=== PATIENT | female | born 1960 | race Caucasian/White ===

== ENCOUNTER → 2020-10-23 | Outpatient (CLI) | payer OTHER ==
[2014-04-22 12:44] VITALS: BP 126/90
[~2020-10-23] MED LIST: CYCL10TA2 PO; DOCU-109 PO; HYDR-2678 PO; HYDR-2765 PO; PARO20TA99 PO
--- NOTE | 2020-10-23 11:26 | KCIC ---
MR LUMBAR SPINE WO [id number] History: Reason: LOW BACK PAIN / Spl. Instructions: Prior surgery x 2, last was in 2016. / History: L LE numbness. Right leg pain, worsening in last 6 mths. Technique: Multiplanar, multi sequential MR imaging was performed of the lumbar spine. Comparison: None Findings: Postoperative changes left posterior stabilization and interbody fusion L2-L3. Mild leftward curvatur e of the lumbar spine centered at L2-L3. Normal vertebral body height. No fracture. Degenerative endp late edema L1-L2. Conus terminates at the normal location. No evidence of nerve root clumping. Prominent posterior epid ural fat. T12-L1: Small disc bulge. Moderate right greater than left facet arthropathy. No canal narrowing. No neuroforaminal narrowing. L1-L2: Central disc extrusion contributing to severe central canal narrowing. Prominent dorsal epidu ral fat. Postoperative changes left hemilaminectomy. Nerve root compression. Facet arthropathy, right greater than left. Moderate neuroforaminal narrowing. L2-L3: Effusion. No canal narrowing. Mild facet arthropathy. No neuroforaminal narrowing. L3-L4: Broad-based disc bulge eccentric to the left. Left foraminal annular fissure. Prominent epidu ral fat. Moderate canal narrowing. Moderate facet arthropathy. Mild bilateral neuroforaminal narrowin g. Subarticular recess narrowing, left greater than right. L4-L5: Broad-based disc bulge. Moderate facet arthropathy. Prominent epidural fat. Severe canal narr owing. Severe subarticular recess narrowing. Moderate left and mild right neuroforaminal narrowing. L5-S1: Disc bulge. Advanced facet arthropathy. No canal narrowing. No neuroforaminal narrowing. Impression: 1. Postoperative changes L2-L3. 2. Multilevel lumbar spondylosis with prominent epidural fat most prominent L1-L2 and L4-5. 3. L1-L2 large central disc extrusion contributing to severe canal narrowing with nerve root mitali carlos. 4. L4-L5 severe canal narrowing. 5. Moderate L3-L4 canal narrowing. 6. Multilevel neuroforaminal narrowing. Electronically signed by: Luis Lopez DO (10/23/2020 11:24 AM) [id number]
== END ==
LOC: KCIC MRI 09:23
PROVIDERS: ATTEND Nurse Practitioner
DX: M47.817 Spondylosis without myelopathy or radiculopathy, lumbosacral region (principal); M48.061 Spinal stenosis, lumbar region without neurogenic claudication
CPT/HCPCS: 72148

== ENCOUNTER → 2020-12-07 | Outpatient (CLI) | payer OTHER ==
[2014-04-22 12:44] VITALS: BP 126/90
[~2020-12-07] MED LIST changes: +LORA10TA3 PO; +METH-562 PO; +MUPI22OI2 TP; +OXYC-325 PO
[2020-12-07 11:14] LABS: BASO # 0.1 x10^3/uL (0.0-0.2); BASO % 1 % (0-3); EOS # 0.2 x10^3/uL (0.0-0.7); EOS % 2 % (0-3); HEMATOCRIT 47.2 % (36.0-47.0); HEMOGLOBIN 16.1 g/dL (12.0-15.5); LYMPH # 2.1 x10^3/uL (1.0-4.8); LYMPH % 25 % (24-48); MEAN CORPUSCULAR HEMOGLOBIN 34 pg (25-35); MEAN CORPUSCULAR HGB CONC 34 g/dL (31-37); MEAN CORPUSCULAR VOLUME 100 fL (79-100); MONO # 0.6 x10^3/uL (0.0-1.1); MONO % 6 % (0-9); NEUT # 5.8 x10^3/uL (1.8-7.7); NEUT % 66 % (31-73); PLATELET COUNT 282 x10^3/uL (140-400); RED BLOOD COUNT 4.73 x10^6/uL (3.50-5.40); RED CELL DISTRIBUTION WIDTH 13.2 % (11.5-14.5); WHITE BLOOD COUNT 8.8 x10^3/uL (4.0-11.0)
[2020-12-07 11:32] LABS: ALBUMIN 3.9 g/dL (3.4-5.0); ALBUMIN/GLOBULIN RATIO 1.1 (1.0-1.7); CREATININE 0.8 mg/dL (0.6-1.0); GFR 73.2; POTASSIUM 4.4 mmol/L (3.5-5.1); TOTAL BILIRUBIN 0.5 mg/dL (0.2-1.0); TOTAL PROTEIN 7.3 g/dL (6.4-8.2)
== END ==
LOC: SURGPAT 10:38
PROVIDERS: ATTEND Neurological Surgery
DX: Z01.812 Encounter for preprocedural laboratory examination (principal); M51.16 Intervertebral disc disorders with radiculopathy, lumbar region; M48.062 Spinal stenosis, lumbar region with neurogenic claudication; Z20.822 Contact with and (suspected) exposure to COVID-19
CPT/HCPCS: 80053; 85025; 87641; U0003; U0005

== ENCOUNTER 2020-12-11 07:38 | Observation (INO) | payer OTHER ==
--- NOTE | 2020-12-08 14:48 | HP ---
ADMIT DATE: 12/11/2020 PREOPERATIVE HISTORY AND PHYSICAL HISTORY OF PRESENT ILLNESS: The patient is a pleasant 59-year-old who is having difficulty with low back pain, which radiates into her right hip and proximal anterior thigh as well as pain and numbness that radiates down the lateral aspect of her leg to her left foot. She says that when she is active. There is a numb sensation, which involves her left leg and she feels that her left leg may collapse. The problem has been present for about 6 months. She says she has a constant pain of about 6-7/10, but it can reach 10/10. Activity such as walking and standing increase her pain. Sitting in a recliner helps. She has had chiropractic treatment without benefit. She has had prednisone injections without benefit. She is currently working from home and sitting at a computer, which makes the problem worse. In 2007, she underwent an instrumented lumbar fusion. In 2013, she underwent surgery at L1-L2 for herniated disk. She did well from both of these surgeries. CURRENT MEDICATIONS: Naproxen, Paxil. PAST MEDICAL HISTORY: No previous medical history. PAST SURGICAL HISTORY: Lumbar fusion in 1999, lumbar surgery at L1-L2 on the left in 2013. FAMILY HISTORY: Heart disease. 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 . Smokes 1 pack per day for 20 years. Drinks 2 alcoholic beverages per day. ALLERGIES: CODEINE. REVIEW OF SYSTEMS: A 10-point review of systems was performed and is noncontributory except that mentioned above. PHYSICAL EXAMINATION: GENERAL: Alert, pleasant, in no acute distress. HEENT: Normocephalic, atraumatic. SKIN: Warm and dry, well-healed lumbar incision. MUSCULOSKELETAL: Lumbar paraspinal muscle bulk is normal, restricted range of motion of the lumbar spine, [id number] tenderness of the lower lumbar spine with palpation, normal range of motion of the lower extremities bilaterally, internal and external rotation of the right hip is not painful. EXTREMITIES: No clubbing, cyanosis or edema. NEUROLOGIC: Alert and oriented x 3. Strength is 5/5 in the lower extremities. Sensory was intact to light touch in the lower extremities except for a decreased sensation in the lateral side of the left leg, Reflexes were trace and symmetric in the lower extremities, negative straight leg raising bilaterally, slow antalgic gait. IMAGING: I reviewed a lumbar MRI scan from 10/23/2020. On that study at L1-L2, there is a central disk extrusion contributing to severe canal stenosis along with hypertrophic facet disease on the right and lateral stenosis. At L4-L5, there is severe canal narrowing and severe subarticular recess narrowing. ASSESSMENT AND PLAN: At this point, based on the pattern of her pain, I suspect that the right hip problem is related to the L1-L2 issue and that the left lateral thigh and leg numbness is related to the stenosis at L4-L5. I recommended a right laminectomy and diskectomy at L1-L2 with a left direct laminectomy and decompression at L4-L5. I spoke with her about the technique, the risk and the expected postoperative course. She understands and would like to go ahead. KORI/DESIRAE DR: Anna TID: [id number]
[2020-12-11] VITALS (9 sets, daily range): BP systolic 99–122; BP diastolic 50–79
[~2020-12-11] VITALS: Ht 162.6 cm; Wt 82.5 kg
[~2020-12-11 07:38] MED LIST changes: +BUPIVACAINE-EPI 0.5%-1:200000 MPF 30 ML VIAL. ONE; +GELATIN SPONGE SIZE 100. ONE; +HYDROmorphone 2 MG/ML VIAL IVP PRN; +IV RINGERS,LACTATED 1000ML 1,000 ML IV SCH; +KETOROLAC 60 MG/2 ML VIAL. ONE; +LIDOCAINE 2% PF 5 ML VIAL. ONE; -METH-562 PO; -OXYC-325 PO; +PROCHLORPERAZINE 10 MG/2 ML VIAL. IVP PRN; +PROPOFOL 10 MG/ML (20ML) VIAL. IV ONE; +PROPOFOL 50 ML IV ONE; +REMIFENTANIL 2 MG VIAL. IV ONE; +ROCURONIUM 50 MG/5 ML VIAL. ONE; +SUCCINYLCHOLINE 200 MG/10 ML VIAL. ONE; +THROMBIN TOPICAL 20,000 UNIT SPRAY.SYRN KIT TP ONE; +fentaNYL PF VIAL 100 MCG/2 ML VIAL IVP PRN; +fentaNYL PF VIAL 100 MCG/2 ML VIAL ONE
[2020-12-11] MEDS ORDERED: DEXAMETHASONE SOD PHOS 4 MG/ML VIAL ONE (09:03)
[2020-12-11] MEDS ORDERED: PROPOFOL 10 MG/ML (20ML) VIAL. IV ONE (09:27)
[2020-12-11] MEDS ORDERED: ONDANSETRON PF 4 MG/2 ML VIAL. ONE (10:18)
[2020-12-11] MEDS ORDERED: PROPOFOL 50 ML IV ONE (10:34)
[2020-12-11] MEDS ORDERED: PHENYLEPHRINE 10 MG/ML VIAL. ONE (11:03)
[2020-12-11] MEDS ORDERED: diphenhydrAMINE HCL 25 MG CAPSULE PO PRN (11:45)
[2020-12-11] MEDS ORDERED: NALOXONE 0.4 MG/ML VIAL. IV PRN (11:45)
[2020-12-11] MEDS ORDERED: fentaNYL PF VIAL 100 MCG/2 ML VIAL IVP PRN (11:45)
[2020-12-11] MEDS ORDERED: 0.9 % SODIUM CHLORIDE 10 ML DISP.SYRIN. IV PRN (11:45)
[2020-12-11] MEDS ORDERED: CALCIUM CARBONATE 500 MG TAB.CHEW PO PRN (11:45)
[2020-12-11] MEDS ORDERED: ONDANSETRON PF 4 MG/2 ML VIAL. IVP PRN (11:45)
[2020-12-11] MEDS ORDERED: MAG HYDROX/ALUMINUM HYD/SIMETH 30 ML ORAL.SUSP PO PRN (11:45)
[2020-12-11] MEDS ORDERED: oxyCODONE/APAP 5/325 1 TAB TABLET PO PRN (11:45)
[2020-12-11] MEDS ORDERED: METHOCARBAMOL 750 MG TABLET PO PRN (11:45)
[2020-12-11] MEDS ORDERED: MAGNESIUM HYDROXIDE 2,400 MG/30 ML ORAL.SUSP. PO PRN (11:45)
[2020-12-11] MEDS: POTASSIUM CL 20MEQ D5-0.45NACL 1,000 ML IV SCH (11:45)
[2020-12-11] MEDS ORDERED: ACETAMINOPHEN 325 MG TABLET. PO PRN (11:45)
[2020-12-11] MEDS ORDERED: PARoxetine 20 MG TABLET PO SCH ×2 (12:00→21:00)
[2020-12-11] MEDS ORDERED: fentaNYL PF VIAL 100 MCG/2 ML VIAL ONE (12:04)
--- NOTE | 2020-12-11 12:04 | OP ---
DATE OF SURGERY: 12/11/2020 PREOPERATIVE DIAGNOSES: 1. Lumbar spinal stenosis L4-L5, left with left lumbar radiculopathy. 2. Herniated lumbar disc, L1-L2 with right lumbar radiculopathy and stenosis. POSTOPERATIVE DIAGNOSIS: OPERATION PERFORMED: 1. Left direct laminectomy L4-L5 with decompression of dura and nerve root. 2. Right direct laminectomy with microdiscectomy L1-L2. The operation was done with EMG monitoring, fluoroscopy, microscopic dissection. SURGEON: Amilcar Wisdom M.D. PECAN GROWER: Nasrin Mosley APRN, assisted with the surgery. She assisted with the exposure, the decompression at L4-L5 as well as a discectomy at L1-L2 and closure. OPERATIVE INDICATIONS: The patient is a very pleasant 60-year-old who developed back and bilateral leg symptoms and had the above-mentioned findings on imaging studies. I recommended lumbar decompressive surgery and discectomy. She understood the surgery, the risks, technique, she wished to go ahead. DESCRIPTION OF PROCEDURE: Following general endotracheal anesthesia, the patient was positioned prone on the Jay table. Lumbar region prepped and draped in standard fashion. EDSON hose and AV impulse boots were applied for DVT prophylaxis. The microscope was draped, fluoroscopy was draped and brought into the field. Monitoring was established. Ancef 2 grams was given less than one hour prior to initiation of the surgery. Using fluoroscopic guidance, an incision was made over the L4-L5 interspace. I dissected down skin and subcutaneous tissue, reflected the paraspinal muscles on the left side and placed a [place] microdisk retractor. She had previously undergone extensive surgery and laminectomy on the right side. At this point, then I brought in the high speed air drill and the microscope and using microscopic technique, I burred down a very generous hemilaminotomy and then trimmed away very thickened ligamentum flavum and peeled this back and exposed the dura and I performed a partial foraminotomy. I did palpated the disc, which was very firm, but was bulging slightly posteriorly, but I did not believe discectomy was warranted. After fully decompressing, I irrigated copiously. I laid Gelfoam over the hemilaminotomy site. I removed the retractor, obtained hemostasis of the muscle, closed the fascia at L4-5 and switched to the contralateral side, made an incision directly over the L1-L2 interspace and I dissected down skin and subcutaneous tissue and dissecting again the paraspinal muscles and placed a [place] microdisc retractor, brought in the microscope again and using the high speed air drill, I burred down a generous hemilaminotomy and then tilted the table away and drilled across the midline as well as drilled ipsilaterally and performed a generous partial foraminotomy. I trimmed away very thickened ligamentum flavum, which was partially scarred to the dura. I gently retracted the dura medially. There was a large subligamentous disc herniation, which was central and I reentered into the disc space as medial as I could and began to perform discectomy. As I worked, I was able to remove large quantities of disc and I was able to pass my [place] dental farther medially. I felt that I had an excellent decompression. I did work posteriorly and widely decompressed. With regard to the lamina, there was epidural fat, which I also removed at both levels. Following this, then I irrigated copiously with Betadine solution. I closed the wound in layers with absorbable suture. The skin was closed with 4-0 subcuticular stitch. I felt the surgery went very well. JENSEN/DESIRAE DR: Katherine TID: [id number] ANABELA
[2020-12-11] MEDS ORDERED: PROCHLORPERAZINE 10 MG/2 ML VIAL. ONE (12:05)
[2020-12-11] MEDS: fentaNYL PF VIAL 100 MCG/2 ML VIAL IVP PRN ×3 (12:09→13:46)
[2020-12-11] MEDS ORDERED: MORPHINE SULFATE 2 MG/ML VIAL. ONE (12:35)
[2020-12-11] MEDS: MORPHINE SULFATE 2 MG/ML VIAL. IVP PRN ×2 (12:39→12:49)
--- NOTE | 2020-12-11 13:08 | NUR ---
Arrived to unit by bed from PACU. Alert and oriented x's 4. Midback dressings intact with some shadowing. Placed a new ice pack. Able to move all extremities without difficulty, pedal pulses + bilaterally and warm touch. EDSON's and DEBBY's on bilaterally. IVF's intact and infusing. O2 at 4l per n/c and sating 96%, turn O2 down 2l per n/c. Oreinted to room and controls. Side rails up x's 2 with call light in reach. Spouse and daughter at bedside. Cont. monitor.
[2020-12-11] MEDS: MUPIROCIN 2 % NASAL OINTMENT 22GM TUBE. TP SCH ×2 (14:00→21:13)
[2020-12-11] MEDS: oxyCODONE/APAP 5/325 1 TAB TABLET PO PRN ×2 (17:00→21:11)
--- NOTE | 2020-12-11 18:07 | NUR ---
script for Percocet and Robaxin given to ; Aguila to drop off at pharmacy. copy made and placed in chart. she states that the Percocet helped her with her pain.
[2020-12-11] MEDS: DOCUSATE SODIUM 100 MG CAPSULE. PO SCH (21:10)
[2020-12-12] MEDS: POTASSIUM CL 20MEQ D5-0.45NACL 1,000 ML IV SCH (01:05)
[2020-12-12] MEDS: oxyCODONE/APAP 5/325 1 TAB TABLET PO PRN ×2 (01:58→06:15)
[2020-12-12 02:56] VITALS: BP 110/62
[2020-12-12 06:26] VITALS: BP 148/84
[2020-12-12] MEDS: DOCUSATE SODIUM 100 MG CAPSULE. PO SCH (08:02)
[2020-12-12] MEDS ORDERED: CETIRIZINE HCL 10 MG TABLET. PO SCH (09:00)
[2020-12-12] MEDS ORDERED: OXYC-325 PO (09:28)
[2020-12-12] MEDS ORDERED: METH-562 PO (09:30)
--- NOTE | 2020-12-12 09:41 | DISCH ---
DISCHARGE INSTRUCTIONS Condition on Discharge Condition on Discharge: Stable Activity After Discharge Activity Instructions for Disc: Activity as tolerated, Avoid exertion, Walk in house Other activity instructions: ambulation only exercise permitted. gradually increase time and distance Bathing Instructions: Shower-keep dressing dry, No Tub Bath until see Lifting Instructions after Dis: No heavy lifting, No pulling or pushing, Do not lift >10 pounds Exercise Instruction after Dis: Progress as tolerated Driving Instructions after Dis: No driving for 2 weeks Weight Bearing Status after Di: No restrictions Diet after Discharge Diet after Discharge: Regular Additional Diet Restrictions: resume home diet Wound Incision Care Wound/Incision Care: Ice to area for comfort Other wound/incision instructi: may shower 48 hrs after surgery. NO direct water to incision; may remove dr Wound Care Equipment: Dressings Checks after Discharge DC Comment: increase fruits, vegetables and fiber; attempt BM every 2-3 days Contacting the DRReji after DC Call your doctor for: Concerns you may have Follow-Up Follow Up With: call [phone] for a 2 week post op appt with Dr. Dunne ([facility]) Treatment/Equipment after DC Adaptive Equipment Issued: None Comment: may remove dressing after shower, no direct water MICKEY DUNNE MD December 12, 2020 09:41
--- NOTE | 2020-12-12 10:00 | NUR ---
reviewed written discharge instructions with Chela and . reviewed restrictions to activities of daily living side effects of new medications and incisional care. bandages given. dismissed home with . scripts were given yesterday to and filled. saline lock removed. original surgical dressing removed glued. no drainage noted. cleansed with chlor prep then new Telfa island applied.
--- NOTE | 2020-12-13 17:13 | PATHOLOGY ---
[facility] Accession Number: [id number] . 01 Material submitted: . vertebral column - LUMBAR DECOMPRESSION AND DISC. Modifiers: LUMBAR, DISC . 01 Clinical history: . STENOSIS LUMBAR HERNIATED DISC WITH RADICULOPATHY . LUMBAR LAMINECTOMY/MICRODISCECTOMY L1-2 RE-OPERATION LUMBAR LAMINECTOMY L4-5 LEFT LUMBAR STENOSIS HERNIATED . 02 Diagnosis: Segments of fibrocartilaginous and adipose tissue and bone, lumbar decompression and disc: - Degenerative changes of fibrocartilaginous tissue. (JPM:tamara; 12/13/2020) MBR 12/13/2020 1538 Local . 02 Comment: There is no evidence of an acute inflammatory process or malignancy. (JPM:tamara; 12/13/2020) . 02 Electronically signed: . Lion Rabago MD, Pathologist NPI- [id number] . 01 Gross description: . The specimen is received in formalin, labeled "[place], Chela, lumbar decompression and disc" is a 5 x 4 x 2 cm aggregate of acosta-hess dense fibroconnective tissue and scant bone. Webfocus Developer, decalcified sections submitted in A1.([facility]; 12/11/2020) ROCHELLE/ROCHELLE 12/11/2020 1902 Local . 02 Pathologist provided ICD-10: M51.36 . 02 CPT . 805430, [id number] Specimen Comment: A courtesy copy of this report has been sent to [phone], [phone] Specimen Comment: [id number] Specimen Comment: Report sent to / DR MALCOLM Performed at: [address], [place], [place] [id number] MD Santiago Fuentes MD Phone: [phone] Performed at: [id number] [place], [place] [id number] MD Lion Rabago MD Phone: [phone]
== END 2020-12-12 10:00 | disposition home or self-care (01) ==
LOC: SURG 07:38 → 4 SOUTHEST 11:39
PROVIDERS: ADMIT Neurological Surgery; ATTEND Neurological Surgery
DX: M48.061 Spinal stenosis, lumbar region without neurogenic claudication (principal); M51.16 Intervertebral disc disorders with radiculopathy, lumbar region; F17.210 Nicotine dependence, cigarettes, uncomplicated; Z98.1 Arthrodesis status
CPT/HCPCS: 63005; 63017; 63047; 63048; 96374; 97161; 97530; A4213; A4364; A4930; A6254; A6258; G0378; G0379; J0330; J0690; J0780; J1100; J1885; J2270; J2370; J2405; J2704; J3010; 76000; A4222; A4657

== ENCOUNTER → 2021-07-11 | Outpatient (CLI) | payer OTHER ==
[~2021-07-11] MED LIST changes: -BUPIVACAINE-EPI 0.5%-1:200000 MPF 30 ML VIAL. ONE; +CYCL10TA19 PO; -CYCL10TA2 PO; -GELATIN SPONGE SIZE 100. ONE; -HYDROmorphone 2 MG/ML VIAL IVP PRN; -IV RINGERS,LACTATED 1000ML 1,000 ML IV SCH; -KETOROLAC 60 MG/2 ML VIAL. ONE; -LIDOCAINE 2% PF 5 ML VIAL. ONE; +METH-562 PO; +OXYC-325 PO; -PROCHLORPERAZINE 10 MG/2 ML VIAL. IVP PRN; -PROPOFOL 10 MG/ML (20ML) VIAL. IV ONE; -PROPOFOL 50 ML IV ONE; -REMIFENTANIL 2 MG VIAL. IV ONE; -ROCURONIUM 50 MG/5 ML VIAL. ONE; -SUCCINYLCHOLINE 200 MG/10 ML VIAL. ONE; -THROMBIN TOPICAL 20,000 UNIT SPRAY.SYRN KIT TP ONE; -fentaNYL PF VIAL 100 MCG/2 ML VIAL IVP PRN; -fentaNYL PF VIAL 100 MCG/2 ML VIAL ONE
--- NOTE | 2021-07-11 09:55 | KCIC ---
Examination: MRI of the right hip without contrast HISTORY: History of right hip pain COMPARISON: None available TECHNIQUE: Multiplanar, multisequence MR imaging of the right hip was performed without contrast FINDINGS: Examination is very limited due to significant motion artifact. The attachment of the hamstring tendon to the ischial tuberosity, attachment of the gluteal tendons t o the greater trochanter, attachment of the iliopsoas tendon to the lesser trochanter and the attachm ent of the rectus femoris tendon to the anterior inferior iliac spine grossly appears intact. Moderate joint space loss right hip joint likely degenerative changes. The visualized labrum grossly appears unremarkable. Mild superficial fraying of cartilage identified in the hip joint. IMPRESSION: 1. Very limited examination due to significant motion artifact. 2. Moderate degenerative changes right hip joint. Electronically signed by: Riccardo Campos MD (07/11/2021 9:52 AM) [id number]
== END ==
LOC: KCIC MRI 08:03
PROVIDERS: ATTEND Orthopaedic Surgery
DX: M16.11 Unilateral primary osteoarthritis, right hip (principal); M25.851 Other specified joint disorders, right hip
CPT/HCPCS: 73721

== ENCOUNTER → 2021-07-20 | Outpatient (CLI) | payer OTHER ==
[~2021-07-20] MED LIST changes: +BUPIVACAINE MPF 0.5% 10 ML VIAL. IJ ONE; +IOHEXOL 300 MG/ML 50 ML VIAL. INT ART ONE; +LIDOCAINE 1% Multi-Dose 20 ML VIAL. ID ONE; +TRIAMCINOLONE ACETONIDE 40 MG/ML VIAL. INT ART ONE
--- NOTE | 2021-07-20 14:22 | RAD ---
IR ARTHROCENTESIS ASP/INJ RIGHT History: Pain Technique: Patient was informed of the risks to include pain, infection, bleeding, allergic reaction. All questions were answered. Patient signed a written consent form for right hip injection for pain therapy. Patient was placed in supine position on the fluoroscopy table. The external skin site overl halle right hip was prepped and draped in the usual sterile fashion. Betadine was utilized for cleansi ng solution. 1% lidocaine was utilized for local anesthesia to the depth of the bone. 22-gauge spinal needle was advanced under fluoroscopy to depth of the bone. Small amount contrast was injected confi rming intra-articular location. Mixture of 4 cc bupivacaine and 80 mg Depo-Medrol were injected durin g fluoroscopic visualization. Needle was removed. There were no immediate complications. Bandage was applied. Fluoroscopy time 0.1 minutes Fluoroscopic images: 1. Impression: 1. Successful right hip steroid injection. Electronically signed by: Luis Lopez DO (07/20/2021 2:20 PM) [id number]
== END | disposition home or self-care (01) ==
LOC: RAD 09:12
PROVIDERS: ATTEND Orthopaedic Surgery
DX: M16.11 Unilateral primary osteoarthritis, right hip (principal); F32.9 Major depressive disorder, single episode, unspecified; F17.210 Nicotine dependence, cigarettes, uncomplicated; Z79.899 Other long term (current) drug therapy; Z98.890 Other specified postprocedural states; Z88.1 Allergy status to other antibiotic agents; Z88.5 Allergy status to narcotic agent
CPT/HCPCS: 20610; 77002; J3301; J3490; Q9967